=== PATIENT | female | born 1995 | race Caucasian/White ===

== ENCOUNTER 2018-12-03 18:26 | Emergency (ER) | payer BC, OTHER ==
[2018-12-03] MEDS ORDERED: Metoclopramide HCl 10 MG/2 ML VIAL ONE (19:14)
[2018-12-03] MEDS ORDERED: diphenhydrAMINE 50 MG/ML VIAL ONE (19:14)
[2018-12-03] MEDS ORDERED: Acetaminophen 500 MG TAB ONE (19:15)
[2018-12-03] MEDS ORDERED: Ketorolac Tromethamine 30 MG/ML VIAL ONE (19:15)
== END 2018-12-03 20:35 | disposition home or self-care (01) ==
LOC: SCSER 18:26
DX: R51 Headache (principal)
CPT/HCPCS: 96365; 96375; J1200; J1885; J2765

== ENCOUNTER 2020-06-07 18:57 | Emergency (ER) | payer BC ==
[~2020-06-07 18:57] MED LIST: Iopamidol-370 76% 500 ML 1 ML ONE
[2020-06-07 19:25] LABS: #Basophils 0.1 thou/uL (0.0-0.2); #Eosinphils 0.1 thou/uL (0.0-0.7); #Monocytes 0.6 thou/uL (0.11-0.59); %Basophils 0.9 % (0.0-1.0); %Eosinophils 1.5 % (0.0-10.0); %Monocytes 6.5 % (0.0-10.0); %Neutrophils 57.2 % (42.0-75.0); Hemoglobin 14.5 g/dL (12.0-16.0); Mean Corpuscular HGB CONC 32.9 g/dL (32.0-36.0); Mean Corpuscular Hemoglobin 28.2 pg (27.0-31.0); Mean Corpuscular Volume 85.8 fL (78.0-98.0); Mean Platelet Volume 7.1 fL (7.4-10.4); Platelet Count 321 thou/uL (130-400); RBC Distribution Width 11.3 % (11.5-14.5); Red Blood Cell (RBC) Count 5.15 mill/uL (4.20-5.40); White Blood Cell (WBC) Count 8.7 thou/uL (4.8-10.8)
[2020-06-07 20:03] LABS: ALT (SGPT) 28 U/L (8-55); Albumin 4.3 g/dL (3.5-5.0); Alkaline Phosphatase 70 U/L (40-110); Anion Gap 15 mmol/L (10-20); BUN (Urea Nitrogen) 13 mg/dL (7.0-18.7); Bilirubin, Total 0.2 mg/dL (0.2-1.2); Calc. Creatinine Clearance 0 mL/min (70-130); Calcium 9.8 mg/dL (7.8-10.44); Carbon Dioxide 27 mmol/L (22-29); Chloride 102 mmol/L (98-107); Globulin 4.1 g/dL (2.4-3.5); Glucose 92 mg/dL (70-105); Potassium 3.9 mmol/L (3.5-5.1); Protein, Total 8.4 g/dL (6.0-8.3); Sodium 140 mmol/L (136-145)
[2020-06-07 21:25] LABS: AST (SGOT) 28 U/L (5-34)
--- NOTE | 2020-06-07 22:13 | RAD ---
RADIOGRAPH CHEST 1 VIEW: DATE: 06/07/2020 HISTORY: 25-year-old female with chest pain FINDINGS: The visualized lung guadalupe are clear. The cardiomediastinal silhouette and hilar shadows are normal. The lateral costophrenic angles are sharp. The osseous structures appear normal. There is no pneumothorax. IMPRESSION: Negative.
[2020-06-07] MEDS ORDERED: Aspirin Chewable 81 MG TAB ONE (23:11)
[2020-06-07 23:40] LABS: BHCG - Serum Negative (NEGATIVE); Pregs Control Background? CLEAR/WHITE (CLR/WHITE); Pregs Control Bar Appear? YES (CONTROL BAR)
--- NOTE | 2020-06-08 00:15 | CT ---
CT ANGIOGRAM THORAX WITH CONTRAST: (CTA pulmonary angiogram) DATE: 06/08/2020 HISTORY: 25-year-old female with sharp chest pain At 12:12 AM 06/08/[address] Dr. [place] [address] Dr. Gardner of the PE TECHNIQUE: IV injection of iodinated contrast. Scan acquisition timing attempted to coincide with iodinated contrast bolus reaching maximal density in pulmonary arteries. 3-D MIP reconstructions. FINDINGS: There is clot in a third order branch of the left lower lobe pulmonary artery. The clot extends into fourth, fifth, and sixth order branches. There are patchy mild groundglass pulmonary lesions in the posterior basilar left lower lobe. Very small left pleural effusion. No right pleural effusion. No pneumothorax. No thoracic aortic aneurysm or dissection. No pericardial effusion. No mediastinal or hilar lymphadenopathy. Trachea and major bronchi are patent and clear. No rib fracture or thoracic spine compression fracture. IMPRESSION: 1) positive for pulmonary thromboembolism involving branches of left lower lobe pulmonary artery. 2) nonspecific mild groundglass pulmonary densities at posterior base of left lower lobe. One possibi lity is mild pulmonary ischemia or infarction. 3) tiny left pleural effusion.
[2020-06-08] MEDS ORDERED: Enoxaparin Sodium 60 MG/0.6 ML SYRINGE ONE (00:21)
[2020-06-08] MEDS ORDERED: Enoxaparin Sodium 30 MG/0.3 ML SYRINGE ONE (00:21)
[2020-06-08] MEDS ORDERED: Enoxaparin Sodium 100 MG/ML SYRINGE ONE (00:24)
[2020-06-08 01:14] LABS: INR-International Normal Ratio 0.9; Prothrombin Time 11.8 sec (12.0-14.7)
[2020-06-08 04:55] LABS: SARS-CoV-2 PCR by NAA Not Detected (NotDetected)
== END 2020-06-08 01:24 | disposition home or self-care (01) ==
LOC: ERS 18:57
DX: I26.99 Other pulmonary embolism without acute cor pulmonale (principal); I27.81 Cor pulmonale (chronic)
CPT/HCPCS: 36415; 71045; 71275; 80053; 84484; 84703; 85025; 85379; 85610; 87635; 93005; 96372; J1650; Q9967; U0003; U0005

== ENCOUNTER 2020-06-09 12:02 | Observation (INO) | payer BC ==
[2020-06-09 15:55] LABS: #Lymphocytes 1.7 thou/uL (1.20-3.40); #Neutrophils 8.5 thou/uL (1.40-6.50); %Basophils 0.3 % (0.0-1.0); %Eosinophils 0.2 % (0.0-10.0); %Lymphocytes 15.1 % (21.0-51.0); %Monocytes 8.6 % (0.0-10.0); %Neutrophils 75.8 % (42.0-75.0); Hemoglobin 14.4 g/dL (12.0-16.0); Mean Corpuscular HGB CONC 33.1 g/dL (32.0-36.0); Mean Corpuscular Hemoglobin 28.5 pg (27.0-31.0); Mean Platelet Volume 6.9 fL (7.4-10.4); Platelet Count 286 thou/uL (130-400); Red Blood Cell (RBC) Count 5.06 mill/uL (4.20-5.40); White Blood Cell (WBC) Count 11.2 thou/uL (4.8-10.8)
[2020-06-09 16:15] LABS: Bacteria/HPF 2+ HPF (None Seen); Bilirubin Negative (Negative); Blood, Urine Negative (Negative); Clarity Turbid (Clear); Glucose, Urine (Dipstick) Normal (Negative); Ketone, Urine Negative (Negative); Leukocyte 500 Leu/uL (Negative); Nitrite Negative (Negative); Protein, Urine (Dipstick) Negative (Neg-Trace); RBC/HPF 0-3 HPF (0-3); Specific Gravity, Urine 1.013 (1.002-1.036); Urobilinogen Normal mg/dL (Less than 2)
[2020-06-09 16:15] LABS: ALT (SGPT) 21 U/L (8-55); AST (SGOT) 19 U/L (5-34); Albumin 4.5 g/dL (3.5-5.0); Alkaline Phosphatase 67 U/L (40-110); Anion Gap 16 mmol/L (10-20); BUN (Urea Nitrogen) 9 mg/dL (7.0-18.7); Bilirubin, Total 0.6 mg/dL (0.2-1.2); CK (CPK) 43 U/L (29-168); Calc. Creatinine Clearance 0 mL/min (70-130); Calcium 9.8 mg/dL (7.8-10.44); Carbon Dioxide 22 mmol/L (22-29); Chloride 104 mmol/L (98-107); Globulin 4.2 g/dL (2.4-3.5); Glucose 93 mg/dL (70-105); Potassium 3.8 mmol/L (3.5-5.1); Protein, Total 8.7 g/dL (6.0-8.3); Sodium 138 mmol/L (136-145)
[2020-06-09] MEDS ORDERED: Morphine 4 MG/ML VIAL ONE (18:18)
[2020-06-09] MEDS ORDERED: Acetaminophen 500 MG TAB ONE (18:19)
[2020-06-09] MEDS ORDERED: Ondansetron PF 4 MG/2 ML Vial IVP PRN (19:24)
[2020-06-09] MEDS ORDERED: Bisacodyl 5 MG TAB PO PRN (19:24)
[2020-06-09] MEDS ORDERED: Acetaminophen 325 MG TAB PO PRN (19:24)
[2020-06-09] MEDS ORDERED: HYDROcodone/Acetaminophen 7.5/325 mg Tablet PO PRN (19:24)
[2020-06-09] MEDS ORDERED: Morphine 2 MG/ML VIAL SLOW IVP SCH (19:30)
--- NOTE | 2020-06-09 19:34 | PDOC.HHP ---
Hospitalist HPI Left-sided chest pain History of Present Illness: 25-year-old female with no past medical history diagnosed with left lower extremity DVT and left-sided pulmonary embolism 2 days ago after a visit to our outside emergency room for chest pain. She was discharged home and prescribed Eliquis 5 mg daily for 7 days. She took 1 dose yesterday. But noticed worsening and persistent chest pain. She admits to mild palpitation but denies any nausea or vomiting. Pain is more left-sided radiating to the left s houlder. She denies any family history of blood clots. She admits to recently being started on an OCPunsure name since the last 4 months. She denies any recent travel. She denies any cough or sputum. On presentation in the ER she was noted with mild tachycardia to 110s but slowly improving. She did describe pain as about 8 out of 10. Past History: PMHx: None PSHx: None FHx: No history of blood clot Social: No history of tobacco, alcohol or illicit drug use Hospitalist HPI ROS Cardiovascular: reports: chest pain All other systems reviewed; all pertinent +/- noted in HPI/Subj Hospitalist Exam General Appearance: NAD, awake alert General - other findings: Obese young female, calm Eye: PERRL, anicteric sclera ENT: normocephalic atraumatic, no oropharyngeal lesions, dry oral mucosa Neck: supple, symmetric, no carotid bruit Heart: RRR, no murmur Respiratory: CTAB, no wheezes Gastrointestinal: soft, non-tender, non-distended Extremities: no cyanosis, no clubbing Skin: normal turgor, no lesions Neurological: cranial nerve grossly intact, no focal deficits Musculoskeletal: normal tone, normal strength Psychiatric: normal affect, oriented to place Hospitalist Results Result Diagrams: 06/09/20 15:40 06/09/20 15:40 Lab results: Laboratory Last Values WBC 11.2 thou/uL (4.8-10.8) H 06/09/20 15:40 RBC 5.06 mill/uL (4.20-5.40) 06/09/20 15:40 Hgb 14.4 g/dL (12.0-16.0) 06/09/20 15:40 Hct 43.5 % (36.0-47.0) 06/09/20 15:40 MCV 86.0 fL (78.0-98.0) 06/09/20 15:40 MCH 28.5 pg (27.0-31.0) 06/09/20 15:40 MCHC 33.1 g/dL (32.0-36.0) 06/09/20 15:40 RDW 11.0 % (11.5-14.5) L 06/09/20 15:40 Plt Count 286 thou/uL (130-400) 06/09/20 15:40 MPV 6.9 fL (7.4-10.4) L 06/09/20 15:40 Neutrophils % 75.8 % (42.0-75.0) H 06/09/20 15:40 Lymphocytes % 15.1 % (21.0-51.0) L 06/09/20 15:40 Monocytes % 8.6 % (0.0-10.0) 06/09/20 15:40 Eosinophils % 0.2 % (0.0-10.0) 06/09/20 15:40 Basophils % 0.3 % (0.0-1.0) 06/09/20 15:40 Neutrophils # 8.5 thou/uL (1.40-6.50) H 06/09/20 15:40 Lymphocytes # 1.7 thou/uL (1.20-3.40) 06/09/20 15:40 Monocytes # 1.0 thou/uL (0.11-0.59) H 06/09/20 15:40 Eosinophils # 0.0 thou/uL (0.0-0.7) 06/09/20 15:40 Basophils # 0.0 thou/uL (0.0-0.2) 06/09/20 15:40 Sodium 138 mmol/L (136-145) 06/09/20 15:40 Potassium 3.8 mmol/L (3.5-5.1) 06/09/20 15:40 Chloride 104 mmol/L (98-107) 06/09/20 15:40 Carbon Dioxide 22 mmol/L (22-29) 06/09/20 15:40 Anion Gap 16 mmol/L (10-20) 06/09/20 15:40 BUN 9 mg/dL (7.0-18.7) 06/09/20 15:40 Creatinine 0.78 mg/dL (0.6-1.1) 06/09/20 15:40 Estimated GFR (MDRD) 90 06/09/20 15:40 Glucose 93 mg/dL (70-105) 06/09/20 15:40 Calcium 9.8 mg/dL (7.8-10.44) 06/09/20 15:40 Total Bilirubin 0.6 mg/dL (0.2-1.2) 06/09/20 15:40 AST 19 U/L (5-34) 06/09/20 15:40 ALT 21 U/L (8-55) 06/09/20 15:40 Alkaline Phosphatase 67 U/L (40-110) 06/09/20 15:40 Creatine Kinase 43 U/L (29-168) 06/09/20 15:40 Troponin I Less than 0.010 ng/mL (< 0.028) 06/09/20 15:40 Serum Total Protein 8.7 g/dL (6.0-8.3) H 06/09/20 15:40 Albumin 4.5 g/dL (3.5-5.0) 06/09/20 15:40 Globulin 4.2 g/dL (2.4-3.5) H 06/09/20 15:40 Albumin/Globulin Ratio 1.1 g/dL (1.2-2.2) L 06/09/20 15:40 Urine Color Light-Yellow (Yellow) 06/09/20 15:48 Urine Clarity Turbid (Clear) A 06/09/20 15:48 Urine pH 6.0 (5.0-9.0) 06/09/20 15:48 Ur Specific [facility] 1.013 (1.002-1.036) 06/09/20 15:48 Urine Protein Negative mg/dL (Neg-Trace) 06/09/20 15:48 Urine Glucose (UA) Normal mg/dL (Negative) 06/09/20 15:48 Urine Ketones Negative mg/dL (Negative) 06/09/20 15:48 Urine Blood Negative (Negative) 06/09/20 15:48 Urine Nitrite Negative (Negative) 06/09/20 15:48 Urine Bilirubin Negative (Negative) 06/09/20 15:48 Urine Urobilinogen Normal mg/dL (Less than 2) 06/09/20 15:48 Ur Leukocyte Esterase 500 Juan Manuel/uL (Negative) A 06/09/20 15:48 Urine RBC 0-3 HPF (0-3) 06/09/20 15:48 Urine WBC 4-6 HPF (0-3) A 06/09/20 15:48 Ur Squamous Epith Cells 7-10 HPF (0-3) A 06/09/20 15:48 Urine Bacteria 2+ HPF (None Seen) A 06/09/20 15:48 Hospitalist H&P A/P (1) Chest pain Code(s): R07.9 - CHEST PAIN, UNSPECIFIED Status: Acute (2) Pulmonary embolism Code(s): I26.99 - OTHER PULMONARY EMBOLISM WITHOUT ACUTE COR PULMONALE Status: Acute Plan: Left-sided chest paindue to persistent pulmonary embolism Due to poor Eliquis dosage Will admit to observation and monitor symptoms We will start patient on NSAIDsibuprofen 3 times daily We will add GI prophylaxis Start Eliquis with ultra full dosing Pulmonary embolismwe will initiate Eliquis as 10 mg twice daily for 7 days then switch to 5 mg twice daily for 3 months discussed Poor dosing and not failure of oral anticoagulation Monitor for resolution of tachycardia Start gentle IV fluid with lactated Ringer's DVT prophylaxisresume Eliquis Dispositionpossible discharge in 24 hours if resolved tachycardia
[2020-06-09] MEDS ORDERED: Enoxaparin Sodium 60 MG/0.6 ML SYRINGE ONE (19:53)
[2020-06-09] MEDS ORDERED: Enoxaparin Sodium 30 MG/0.3 ML SYRINGE ONE ×2 (19:53)
[2020-06-09] MEDS ORDERED: Famotidine 20 MG TAB ONE (20:22)
[2020-06-09] MEDS ORDERED: Morphine 2 MG/ML VIAL ONE (20:23)
[2020-06-09] MEDS: Ibuprofen 600 MG TAB PO SCH (20:33)
[2020-06-09] MEDS: Lactated Ringer's 1,000 ML IV SCH (20:34)
[2020-06-09] MEDS: Apixaban 5 MG TAB PO SCH (20:35)
[2020-06-09] MEDS: Famotidine 20 MG TAB PO SCH (20:35)
[2020-06-10 04:56] LABS: SARS-CoV-2 PCR by NAA Not Detected (NotDetected)
[2020-06-10 05:34] LABS: #Eosinphils 0.1 thou/uL (0.0-0.7); #Lymphocytes 2.1 thou/uL (1.20-3.40); #Monocytes 1.1 thou/uL (0.11-0.59); #Neutrophils 5.5 thou/uL (1.40-6.50); %Basophils 0.4 % (0.0-1.0); %Eosinophils 0.6 % (0.0-10.0); %Lymphocytes 23.5 % (21.0-51.0); %Monocytes 12.5 % (0.0-10.0); %Neutrophils 62.9 % (42.0-75.0); Hemoglobin 13.2 g/dL (12.0-16.0); Mean Corpuscular HGB CONC 32.7 g/dL (32.0-36.0); Mean Corpuscular Hemoglobin 28.3 pg (27.0-31.0); Mean Corpuscular Volume 86.6 fL (78.0-98.0); Mean Platelet Volume 6.7 fL (7.4-10.4); Platelet Count 232 thou/uL (130-400); Red Blood Cell (RBC) Count 4.66 mill/uL (4.20-5.40); White Blood Cell (WBC) Count 8.7 thou/uL (4.8-10.8)
[2020-06-10 05:58] LABS: Anion Gap 12 mmol/L (10-20); BUN (Urea Nitrogen) 11 mg/dL (7.0-18.7); Calc. Creatinine Clearance 0 mL/min (70-130); Calcium 9.3 mg/dL (7.8-10.44); Carbon Dioxide 26 mmol/L (22-29); Chloride 105 mmol/L (98-107); Glucose 95 mg/dL (70-105); Potassium 4.4 mmol/L (3.5-5.1); Sodium 139 mmol/L (136-145)
[2020-06-10] MEDS: Ibuprofen 600 MG TAB PO SCH ×2 (06:07→07:32)
[2020-06-10] MEDS: Lactated Ringer's 1,000 ML IV SCH (06:08)
[2020-06-10] MEDS ORDERED: Famotidine 20 MG TAB ONE (10:14)
[2020-06-10] MEDS: Apixaban 5 MG TAB PO SCH (10:17)
[2020-06-10] MEDS: Famotidine 20 MG TAB PO SCH (10:17)
--- NOTE | 2020-06-10 11:59 | PDOC.DS.DS ---
Provider Date of Admission: 06/09/20 19:28 Date of Discharge: 06/10/20 Admitting Provider: Vangie Butler MD Primary Care Physician: Nica Kenny MD Course Hospital Course: Discharge diagnosis: 1. Pulmonary embolism 2. COVID-19 test negative Hospital course: Patient is a pleasant 20-year-old lady who was admitted to the hospital on June 09, 2020 for recently diagnosed pulmonary embolism. She was reportedly taking Eliquis 1 tablet once daily, instead of 2 tablets twice daily. She was instructed regarding correct dosing of Eliquis. She was observed overnight and is being discharged home in a stable condition. Many thanks for allowing me to participate in your patient's care. Please feel free to contact me with any questions or concerns. Discharge destination: Home Resuscitation Status: 06/09/20 19:24 Resuscitation Status Routine Resuscitation Status: FULL: Full Resuscitation Lab Results: 06/10/20 05:22 06/10/20 05:22 Abnormal Lab Results - Last 48 hrs 06/09/20 15:40: WBC 11.2 H, RDW 11.0 L, MPV 6.9 L, Neutrophils % 75.8 H, Lymphocytes % 15.1 L, Neutrophils # 8.5 H, Monocytes # 1.0 H 06/09/20 15:40: Serum Total Protein 8.7 H, Globulin 4.2 H, Albumin/Globulin Ratio 1.1 L 06/09/20 15:48: Urine Clarity Turbid A, Ur Leukocyte Esterase 500 A, Urine WBC 4-6 A, Ur Squamous Epith Cells 7-10 A, Urine Bacteria 2+ A 06/10/20 05:22: RDW 11.0 L, MPV 6.7 L, Monocytes % 12.5 H, Monocytes # 1.1 H Physical Exam: The patient was seen and examined on the day of discharge. Patient denies chest pain or shortness of breath. Vital signs are stable. S1 and S2 are heard. Lungs are clear to auscultation bilaterally. Plan Allergies: No Known Drug Allergies Allergy (Unverified 06/09/20 19:30) Discharge Instructions:: Take Eliquis 10 mg two times a day for six more days, then 5 mg two times a day. Activity:: Activity as Tolerated Nourishment:: Heart Healthy Diet Referrals: Nica Kenny MD [Primary Care Provider] - 3 Days (Please call to schedule follow up appt. ) Disposition: HOME Quality CORE MEASURES:: N/A
[2020-06-10] MEDS ORDERED: Acetaminophen/Codeine 30-300mg Tablet PO PRN (12:34)
== END 2020-06-10 12:32 | disposition home or self-care (01) ==
LOC: ERS 12:02 → ERHOLD 14:04
PROVIDERS: ADMIT Internal Medicine; ATTEND Internal Medicine
DX: I26.99 Other pulmonary embolism without acute cor pulmonale (principal); Z86.718 Personal history of other venous thrombosis and embolism; Z79.01 Long term (current) use of anticoagulants; Z79.899 Other long term (current) drug therapy; Z20.822 Contact with and (suspected) exposure to COVID-19
CPT/HCPCS: 36415; 80048; 80053; 81003; 81015; 82550; 84484; 85025; 87635; 93005; 96372; 96374; G0378; J1650; J2270; U0003; U0005